=== PATIENT | female | born 1940 | race Caucasian/White ===

== ENCOUNTER 2016-12-23 11:21 | Inpatient (IN) | payer MEDICARE, BC ==
[~2016-12-23 11:21] MED LIST: ADULT LOW DOSE81 M1 PO; COSOPT EYE DROP10 ML RIGHT EYE; CPAP; IBUPROFEN200 M2 PO; LUMIGAN2.5 M2 OP; SENNA PLUS TAB1 EAC1 PO; SYNTHROID112 MC1 PO; TYLENOL325 M2 PO; ULTRAM50 M1 PO; XARELTO10 M1 PO
[2016-12-23 12:08] LABS: PROTHROMBIN TIME 11.5 SECONDS (9.0-13.6)
[2016-12-24 05:33] LABS: BASO % 0.1 % (0-2); EOS % 0.1 % (0-7); HCT-HEMATOCRIT 33.2 % (34.0-49.0); IMMATURE GRANULOCYTES ABSOLUTE 0.03 tho/cmm (0-0.03); IMMATURE GRANULOCYTES PERCENT 0.3 % (0-0.3); LYMPH % 9.6 % (20-45); LYMPH ABSOLUTE COUNT 1.1 tho/cmm (0.8-4.5); MCH (MEAN CORPUSCULAR HGB) 29.1 pg (28.0-32.0); MCHC MEAN CORPUSCULAR HGB CONC 33.1 % (32.0-36.0); MCV (MEAN CELL VOLUME) 87.8 fl (82.0-96.0); MEAN PLATELET VOLUME 10.2 cmc (9.4-12.4); MONO % 9.4 % (0-12); NEUTROPHIL ABSOLUTE COUNT 8.8 tho/cmm (1.6-8.0); NEUTROPHIL-AUTOMATED 8.8 tho/cmm (1.6-8.0); NEUTROPHILS % 80.5 % (40-80); PLATELET COUNT 178 tho/cmm (150-450); RED BLOOD COUNT 3.78 mil/cmm (4.00-5.20); RED CELL DISTRIBUTION WIDTH 14.3 % (12.4-16.4); WHITE BLOOD COUNT 10.9 tho/cmm (4.0-10.0)
[2016-12-24 05:58] LABS: ALB/GLOB RATIO 0.9 (0.8-2.0); ALBUMIN 2.8 g/dl (3.5-5.0); ALKALINE PHOSPHATASE 71 U/L (33-138); ALT/SGPT 19 U/L (12-78); ANION GAP 12 mmol/L (0-20); AST/SGOT 23 U/L (10-40); BILIRUBIN,TOTAL 0.4 mg/dl (0-1.5); BLOOD UREA NITROGEN 11 mg/dl (6-24); CALCIUM 8.5 mg/dl (8.5-10.5); CARBON DIOXIDE-VENOUS 27 mmol/L (22-32); CHLORIDE 105 mmol/l (96-110); CREATININE 0.62 mg/dl (0.50-1.10); GLUCOSE 119 mg/dL (70-110); POTASSIUM 4.5 mmol/L (3.7-5.1); SODIUM 139 mmol/L (135-145); eGFR VALUE FOR BLACK >90 mL/Min
[2016-12-24] MEDS ORDERED: ASPIRIN81 M1 PO (13:14)
[2016-12-24] MEDS ORDERED: ULTRAM50 M1 PO (13:15)
[2016-12-24] MEDS ORDERED: TYLENOL325 M2 PO (13:16)
[2016-12-24] MEDS ORDERED: MILK OF MAGNESIA PO (13:17)
[2016-12-24] MEDS ORDERED: MOBIC7.5 M2 PO (13:18)
[2016-12-24] MEDS ORDERED: OXYCODONE HCL5 M1 PO (13:19)
== END 2016-12-24 14:50 | DRG 470 ==
LOC: SHSB 11:21 → ORE 12:57 → PACU 15:14 → 5EA 16:20
PROVIDERS: Internal Medicine; ADMIT Orthopaedic Surgery Foot and Ankle Surgery
PROC: 0SR902A Replacement of Right Hip Joint with Metal on Polyethylene Synthetic Substitute, Uncemented, Open Approach (ICD-10-PCS; principal; 2016-12-23)
DX: M16.11 Unilateral primary osteoarthritis, right hip (principal); G47.33 Obstructive sleep apnea (adult) (pediatric)
CPT/HCPCS: C1776; J0171; J0690; J1885; J2270; J2795; J3010